=== PATIENT | female | born 1950 | race Caucasian/White ===

== ENCOUNTER 2018-03-05 16:52 | Emergency (ER) | payer MEDICARE ==
[~2018-03-05 16:52] MED LIST: DM H1CAP4 PO; GUAI600T57 PO; LEVO750T44 PO; NAPR220C12 PO
--- NOTE | 2018-03-05 16:54 | ER Report ---
History and Physical Time Seen By MD: 16:54 HPI/ROS CHIEF COMPLAINT: cough HISTORY OF PRESENT ILLNESS: Pt here for evaluation of cough, chills and fever. Pt states that her had similar symptoms but got better. Pt has been sick for a week. + runny nose. cough is now productive. Pt is a smoker. Pt denies feeling sob but can't stop coughing. no cp REVIEW OF SYSTEMS: Gen: + fever, + chils Respiratory: + cough, no dyspnea. Cardiovascular: No chest pain, no palpitations. Gastrointestinal: No vomiting, no abdominal pain. Musculoskeletal: No back pain. Allergies: Coded Allergies: tramadol (Unverified Allergy, Intermediate, HALLUCINATIONS, 03/05/18) Home Meds Active Scripts Azithromycin (Z-PACK) 250 Mg Tablet, 250 MG PO QDAY, #6 DOSE-PACK 500mg today (2 pills) then 250mg (one pill) for next 4 days. Prov:KALLIE RODRIGUES V DO 03/05/18 Discontinued Reported Medications Naproxen Sodium (ALEVE) 220 Mg Capsule, 220 MG PO TID, CAPSULE 10/02/14 Dm Hb/Pe/Acetaminophen/Chlorph (CODI-SELTZER PLUS CLD-COUGH CP) 1 Each Capsule, 1 EACH PO, CAPSULE 10/02/14 Guaifenesin (MUCINEX) 600 Mg Tablet.er, 600 MG PO 10/02/14 Discontinued Scripts Levofloxacin 750 Mg Tab (LEVAQUIN 750 MG TAB) 750 Mg Tablet, 750 MG PO DAILY, # 5 TAB One tab daily for 5 days Prov:RODRIGUE GARRETT ACCOUNTS PAYABLE COORDINATOR 10/02/14 Past Medical/Surgical History Pmhx; costocondritis, pneumonia Pshx: noncontribuitory Reviewed Nurses Notes: Yes Hx Smoking: Yes (< 1ppd) Hx Substance Use Disorder: No Hx Alcohol Use: No Constitutional Vital Sign - Last 24 Hours 03/05/18 03/05/18 03/05/18 03/05/18 16:55 17:24 17:24 17:30 Temp 98.5 Pulse 91 97 83 Resp 16 18 18 B/P (MAP) 136/70 Pulse Ox 90 90 O2 Delivery Room Air Room Air Physical Exam General Appearance: The patient is alert, has no immediate need for airway protection and no signs of toxicity. Eyes: Pupils equal and round no pallor or injection, EOMI ENT: no pharyngeal erythema or exudates, Mucous membranes are moist, TM are nl b/l Respiratory: There are no retractions, lungshave rhonchi b/l with mild wheeze on left base Cardiovascular: Regular rate and rhythm. pulses are equal and symmetrical Gastrointestinal: Abdomen is soft and non tender, no masses, bowel sounds normal, no guarding, no rigidity or rebound Neurological: Cranial nerves II-XII grossly intact, no sensory or motor loss Skin: Warm and dry, no rashes. Musculoskeletal: Neck is supple non tender, no vertebral tenderness Extremities are nontender, non swollen and have full range of motion. DIFFERENTIAL DIAGNOSIS: After history and physical exam differential diagnosis was considered for bronchitis, pneumonia, allergic rhinitis Medical Decision Making EKG/Imaging Imaging napd ED Course/Re-evaluation ED Course xray does not show infiltrate. Pt does feel much better after the nebulizer. Clinically lungs are louder but still some rhonchi. Has been sick for a week. Will start on abx and will treat her with mdi prn Decision to Disposition Date: Mar 05, 2018 Decision to Disposition Time: 17:43 Depart Departure Latest Vital Signs Vital Signs Date Time Temp Pulse Resp B/P (MAP) Pulse Ox O2 Delivery O2 Flow Rate FiO2 03/05/18 17:30 83 18 03/05/18 17:24 90 Room Air 03/05/18 16:55 98.5 136/70 Impression: Primary Impression: Cough Additional Impression: Bronchitis Condition: Improved Disposition: HOME OR SELF-CARE Referrals: MARYAM ZHU DO (PCP) 2 Days New Scripts Azithromycin (Z-PACK) 250 Mg Tablet 250 MG PO QDAY, #6 DOSE-PACK 500mg today (2 pills) then 250mg (one pill) for next 4 days. Prov: KALLIE RODRIGUES DO 03/05/18 Patient Instructions: Acute Cough (GEN) Additional Instructions: Your xray did not show pneumonia. We are treating you for bronchitis. We sent a script for an antibiotic to [facility]. Zithromax. 500mg today then 250mg once a day for 4 days. Albuterol inhaler take 2 puffs every 4 hours as needed for cough, shortness of breath. Use with spacer. Problem Qualifiers KALLIE RODRIGUES DO Mar 05, 2018 16:54
[2018-03-05] MEDS ORDERED: ALBUTEROL/IPRATROPIUM 3 ML NEB NEB ONE (17:20)
--- NOTE | 2018-03-05 17:26 | RADIOLOGY IMAGING REPORT ---
FACILITY: [facility] [place] PATIENT NAME: Kacie Hart : 1950 MR: [id number] V: [id number] EXAM DATE: ORDERING PHYSICIAN: KALLIE RODRIGUES TECHNOLOGIST: Location: [facility] Patient: Kacie Hart : 1950 Visit/Account:[id number] Date of Sevice: 03/05/2018 Exam type: CHEST PA AND LAT History: Cough fever chest pressure x2 weeks Comparison: October 13, 2014. Findings: There is no evidence of acute pulmonary consolidation, pleural effusions or pulmonary edema. Cardiac silhouette is normal in size. There are mild spondylotic changes of the thoracic spine. IMPRESSION: 1. No acute cardiopulmonary process is seen Report Dictated By: Malinda Barnard MD at 03/05/2018 5:20 PM Report E-Signed By: Malinda Barnard MD at 03/05/2018 5:21 PM WSN:[id number]
[2018-03-05] MEDS ORDERED: ALBUTEROL SULFATE 90 MCG/ACT 8.5 GM HNH INH ONE (17:40)
[2018-03-05] MEDS ORDERED: AZIT-17 PO (17:44)
[2018-03-05 17:47] VITALS: BP 130/64
== END 2018-03-05 17:50 | disposition home or self-care (01) ==
LOC: ER 16:55
DX: J40 Bronchitis, not specified as acute or chronic (principal)
CPT/HCPCS: 71046; 94640; 99283; J7620